=== PATIENT | male | born 1950 | race Caucasian/White ===

== ENCOUNTER → 2016-03-28 | Outpatient (CLI) | payer OTHER, MEDICARE ==
--- NOTE | 2016-03-29 08:39 | DX ---
Bone Densitometry Indication: Osteopenia. Technique: DEXA scan was performed on [employer] W Bone Densitometer. Comparison Study: February 06, 2015. Results: Lumbar Spine (L1-L4) BMD: 0.959 T-score: -1.2 Prior BMD: 0.972 Percent change: -1.3% Total Hip (Right) BMD: 0.744 T-score: -1.9 Prior BMD: 0.766 Percent change: -2.8% Femoral Neck (Right) BMD: 0.761 T-score: -1.9 Total Hip (Left) BMD: 0.898 T-score: -0.9 Prior BMD: 0.931 Percent change: -3.5% Femoral Neck (Left) BMD: 0.740 T-score: -1.4 Forearm (Right) BMD: 0.612 T-score: -1.2 Prior BMD: 0.621 Percent Change: -1.4% Forearm (Left): BMD: 0.607 T-score: -1.3 Prior BMD: 0.618 Percent Change: -1.9% Conclusion: Osteopenia. In comparison to the previous study from January 2015, there has been a decrease in the patient's me asured BMD of the right hip, left hip, right forearm, and left forearm. The only significant change is a decrease in the left forearm. Additional Comments: 1. By FRAX calculation, the estimated 10-year risk of any major osteoporotic fracture is 11%. The es timated 10-year risk of hip fracture is 2.4%. 2. Consider repeating this study in 2 years or as clinically indicated. NOTE: The risk of osteoporotic fracture increases approximately two-fold for each 1.0 SD decrease in T-score. The T-score represents the standard deviations from a young normal, same sex, reference po pulation. Low bone density is not the only risk factor for fracture. Clinical factors to consider include fall risk, previous osteoporotic fracture, family history of fractures, smoking, and low body weight. Patients who have an unexpectedly low BMD may need to be evaluated for secondary causes of low bone m ineral density. In comparing the present study to a prior study, lack of a significant increase or decrease in BMD ma y signify efficacy of the patient's present treatment. Bone mineral density measurements performed with densitometers produced by different manufacturers ar e not comparable. For the most reproducible BMD measurement, subsequent exams should be performed on the same densitometer.
== END ==
LOC: BMCIMAGING 09:38
PROVIDERS: ATTEND Internal Medicine Endocrinology, Diabetes & Metabolism
DX: Z13.820 Encounter for screening for osteoporosis (principal); M85.80 Other specified disorders of bone density and structure, unspecified site

== ENCOUNTER → 2016-08-19 | Outpatient (CLI) | payer OTHER, MEDICARE | LOC: BMCIMAGING 13:22 | PROVIDERS: ATTEND Nurse Practitioner Adult Health | DX: R05 Cough (principal); R50.9 Fever, unspecified; J98.4 Other disorders of lung ==

== ENCOUNTER → 2017-04-03 | Outpatient (CLI) | payer OTHER, MEDICARE | LOC: BMCIMAGING 10:11 | PROVIDERS: ATTEND Internal Medicine Endocrinology, Diabetes & Metabolism | DX: Z13.820 Encounter for screening for osteoporosis (principal); M85.89 Other specified disorders of bone density and structure, multiple sites ==

== ENCOUNTER → 2018-05-26 | Outpatient (CLI) | payer OTHER, MEDICARE | LOC: BMCIMAGING 09:57 | PROVIDERS: ATTEND Internal Medicine | DX: Z13.820 Encounter for screening for osteoporosis (principal); M85.89 Other specified disorders of bone density and structure, multiple sites; Z87.81 Personal history of (healed) traumatic fracture ==